=== PATIENT | male | born 1975 | race Caucasian/White ===

== ENCOUNTER 2019-03-26 20:41 | Emergency (ER) | payer SELFPAY ==
[~2019-03-26] VITALS: Ht 182.9 cm; Wt 83.9 kg
[2019-03-26 21:03] VITALS: BP 139/86
[2019-03-27] MEDS ORDERED: TETRACAINE HCL 0.5% OPTH(EYE) SOLN 4ML EACHEYE ONE (07:00)
[2019-03-27] MEDS ORDERED: FLUORESCEIN SOD 1 MG TEST STRIP OP ONE (07:00)
== END 2019-03-27 07:28 | disposition home or self-care (01) ==
LOC: ER 20:43
DX: T15.92XA Foreign body on external eye, part unspecified, left eye, initial encounter (principal); S05.02XA Injury of conjunctiva and corneal abrasion without foreign body, left eye, initial encounter; F17.210 Nicotine dependence, cigarettes, uncomplicated; X58.XXXA Exposure to other specified factors, initial encounter; Y93.89 Activity, other specified; Y92.89 Other specified places as the place of occurrence of the external cause; Y99.8 Other external cause status
CPT/HCPCS: 65220

== ENCOUNTER → 2021-10-26 | Emergency (ER) | payer OTHER ==
[~2021-10-26] VITALS: Ht 182.9 cm; Wt 77.1 kg
[~2021-10-26] MED LIST: ACETAMINOPHEN 500 MG TAB PO ONE; IBUPROFEN 800 MG TAB PO ONE
[2021-10-26 18:31] VITALS: BP 140/91
== END | disposition left against medical advice (07) ==
LOC: ER 18:10
DX: R50.9 Fever, unspecified (principal); R05.9 Cough, unspecified; M79.10 Myalgia, unspecified site; R06.02 Shortness of breath; Z53.21 Procedure and treatment not carried out due to patient leaving prior to being seen by health care provider
CPT/HCPCS: 71045